=== PATIENT | male | born 1995 | race Caucasian/White ===

== ENCOUNTER → 2016-05-16 | Outpatient (CLI) | payer MEDICAID ==
[2016-05-16 16:06] LABS: BASOPHILS # (AUTO) 0.1 X10^3/uL (0.0-0.1); BASOPHILS % (AUTO) 0.8 % (0.2-1.0); EOSINOPHILS % (AUTO) 0.7 % (0.9-2.9); HEMATOCRIT 47.4 % (42.0-54.0); HEMOGLOBIN 16.5 g/dL (13.5-18.0); LYMPHOCYTES # (AUTO) 1.2 X10^3/uL (1.3-2.9); MEAN CORPUSCULAR HEMOGLOBIN 32.2 pg (27.0-34.0); MEAN CORPUSCULAR HGB CONC 34.9 g/dL (33.0-35.0); MEAN CORPUSCULAR VOLUME 92.3 fL (80.0-100.0); MEAN PLATELET VOLUME 8.5 fL (7.4-11.0); MONOCYTES # (AUTO) 0.7 x10^3/uL (0.3-0.8); MONOCYTES % (AUTO) 11.3 % (0.0-13.0); NEUTROPHILS # (AUTO) 4.2 x10^3/uL (2.2-4.8); NEUTROPHILS % (AUTO) 67.2 % (42.0-75.0); PLATELET COUNT 222 X10^3/uL (150.0-450.0); RED BLOOD COUNT 5.13 X10^6/uL (4.7-6.0); RED CELL DISTRIBUTION WIDTH 12.9 % (11.6-16.5); WHITE BLOOD COUNT 6.2 X10^3/uL (3.6-10.0)
[2016-05-16 16:15] LABS: ALANINE AMINOTRANSFERASE 194 Units/L (12-78); ALBUMIN 4.1 g/dL (3.4-5.0); ALKALINE PHOSPHATASE 68 Units/L (46-116); ASPARTATE AMINO TRANSFERASE 166 Units/L (15-37); BLOOD UREA NITROGEN 4 mg/dL (7-18); CALCIUM 9.2 mg/dL (8.5-10.1); CARBON DIOXIDE 27.9 mmol/L (21-32); CHLORIDE 100 mmol/L (98-107); COR NA(FOR HYPERGLY) 138 mmol/L (136-145); GLUCOSE 111 mg/dL (65-99); SODIUM 138 mmol/L (136-145); TOTAL PROTEIN 8.1 g/dL (6.4-8.2); eGFR BLACK RACES > 60 (>60); eGFR NON BLACK RACES > 60 (>60)
[2016-05-16 16:29] LABS: VALPROIC ACID 88.6 ug/mL (50-100)
== END ==
LOC: LAB 15:25
PROVIDERS: ATTEND Nurse Practitioner Family
DX: Z87.898 Personal history of other specified conditions (principal); I10 Essential (primary) hypertension
CPT/HCPCS: 36415; 80053; 80164; 80177; 85025

== ENCOUNTER → 2016-05-31 | Outpatient (CLI) | payer MEDICAID ==
[~2016-05-31] MED LIST: NS 100 ML IV 100 ML IV ONE
--- NOTE | 2016-05-31 10:49 | US ---
HISTORY: Elevated liver enzymes Study: Right upper quadrant abdominal ultrasound Comparison: None Technique: Multiple images of the right upper quadrant were obtained. Findings: Increased echogenicity throughout the liver suggests fatty infiltration. Correlate clinically as oth er causes of hepatic disease may produce a similar appearance.. The right kidney measures 13.5 x 6.6 x 5.0 cm. No sonographic evidence of hydronephrosis is identified. No shadowing echogenic stones ar e noted within the gallbladder. Gallbladder wall thickness is within normal limits measuring 2.7 mm. The common bile duct is within normal limits in caliber measuring 4.4 mm. The pancreas was incomple tely visualized. IMPRESSION: 1. Sonographic findings of hepatic steatosis. Reported By:
--- NOTE | 2016-05-31 12:12 | CT ---
STUDY: CT HEAD WITHOUT AND WITH CONTRAST HISTORY: History of seizures. TECHNIQUE: Multiple axial images of the head were obtained from the skull base to the vertex withou t administration of IV contrast. Automated exposure control (AEC) was utilized to adjust the MA and /or kV. COMPARISON: None. FINDINGS: Precontrast Head: The sulci, cisterns and ventricles are age appropriate. There is no evidence of ac antony territorial infarction, hemorrhage, mass, mass effect, or midline shift. There are no abnormal i ntra-axial or extra-axial fluid collections. There is no evidence of acute osseous abnormality or si gnificant soft tissue swelling. Visualized paranasal sinuses and mastoid air cells are predominately clear. Postcontrast head: Following the uneventful administration of intravenous contrast, there is no evid ence of abnormal brain parenchymal or leptomeningeal enhancement. IMPRESSION: 1. No evidence of acute intracranial abnormality. Reported By:
== END ==
LOC: RAD 09:40
PROVIDERS: ATTEND Nurse Practitioner Family
DX: R74.8 Abnormal levels of other serum enzymes (principal); Z87.898 Personal history of other specified conditions; K76.89 Other specified diseases of liver
CPT/HCPCS: 70470; 76705; A4222

== ENCOUNTER → 2016-06-20 | Outpatient (CLI) | payer MEDICAID ==
[2016-06-20 11:58] LABS: ALBUMIN 4.4 g/dL (3.4-5.0); BILIRUBIN,DIRECT 0.06 mg/dL (0-0.2); TOTAL PROTEIN 8.5 g/dL (6.4-8.2)
[2016-06-23 20:19] LABS: HEPATITIS A ANTIBODY IGM Negative (Negative)
[2016-06-25 11:05] LABS: HEPATITIS B CORE IGM Negative (Negative); HEPATITIS B SURFACE ANTIGEN Negative (Negative)
[2016-06-25 11:07] LABS: ANTI-NUCLEAR ANTIBODY TEST None Detected (None Detected); COPPER LEVEL 99 ug/dL (70-140)
== END ==
LOC: LAB 10:49
PROVIDERS: ATTEND Internal Medicine Gastroenterology
DX: R94.5 Abnormal results of liver function studies (principal)
CPT/HCPCS: 36415; 80074; 80076; 82103; 82390; 82525; 82728; 83540; 83550; 84466; 86256; 86308

== ENCOUNTER 2016-06-23 06:40 | Emergency (ER) | payer MEDICAID ==
[2016-06-23 06:50] VITALS: BP 158/86; BMI 22.7
--- NOTE | 2016-06-23 07:12 | DR.GENAD ---
HPI - PCP Primary Care Physician: VARUN - Complaint/Symptoms Chief Complaint Doctors Comments: Patient presents with mom with c/o seizure activity. His upper extremities were stiff, duration of seizure less than five minutes. There was no urinary or fecal incontinence. He had febrile as child then started have non febrile. He was home school due to frequency of seizures. He has been seen and evaluated by neurologist and follow by a primary care physician. His work up has been negative todate by history. Patient lives with his dad and sister. His last drug level of levetiracetam was <2mcg/ml (05/16/16). Patient is alert in no acute distress. Chief Complaint:: PT C/O SEIZURE. PT HAS A HISTORY OF SEIZURE. PT'S MEDICATION WAS JUST CHANGED. - Source History Provided: Patient, Parent, EMS - Mode of Arrival Mode of Arrival: EMS - Timing Onset of Chief Complaint: 06/23/16 PMH - PMH Past Medical History: Yes Past Medical History: Diabetes, Seizures Past Surgical History: No - Family History History of Family Medical Conditions: No - Social History Does any household member use tobacco: No Alcohol Use: None Do you use any recreational Drugs:: No Lives With: Family Lives Where: Home - infectious screening In the last 2 months have you had wt loss of >10#?: NO Have you had fever, night sweats or hemotysis?: No Have you traveled outside the country in the last 6 months?: No Isolation: Standard ROS - Review of Systems Constitutional: No Symptoms Reported Eyes: No Symptoms Reported ENTM: No Symptoms Reported Respiratoy: No Symptoms Reported Cardiovascular: No Symptoms Reported Gastrointestinal/Abdominal: No Symptoms Reported Genitourinary: No Symptoms Reported Neurological: No Symptoms Reported Musculoskeletal: No Symptoms Reported Integumentary: No Symptoms Reported Hematologic/Lymphatic: No Symptoms Reported Endocrine: No Symptoms Reported Psychiatric: No Symptoms Reported All Other Systems: Reviewed and Negative PE - Vital Signs Vitals: Temperature 98.3 F Pulse Rate 152 Respiratory Rate 20 Blood Pressure 158/86 O2 Sat by Pulse Oximetry 97 - General Limitations: No Limitations General Appearance: Alert, In No Apparent Distress - Head Head Exam: Normal Inspection, Atraumatic - Eyes Eye exam: Normal Appearance, PERRL, EOMI - ENT ENT Exam: Normal Exam External Ear Exam: Normal External Inspection TM/Canal Exam: Bilateral Normal Nose Exam: Normal Nose Exam Mouth Exam: Normal Inspection Throat Exam: Normal Inspection - Neck Neck Exam: Normal Inspection - Chest Chest Inspection: Normal Inspection - Respiratory Respiratory Exam: Normal Lung Sounds Bilat Respiratory Exam: Bilateral Clear to Auscultation - Cardiovascular Cardiovascular Exam: Regular Rate, Normal Rhythm - Abdominal Exam Abdominal Exam: Normal Inspection, Normal Bowel Sounds Abdominal Tenderness: negative: RUQ, RLQ, LUQ, LLQ, Epigastrium, Suprapubic, Diffuse, Mild, Moderate, Severe, Other - Extremities Extremities Exam: Normal Inspection, Full ROM - Back Back Exam: Normal Inspection, Full ROM - Neurologic Neurological Exam: Alert, Oriented X3, CN II-XII Intact - Psychiatric Psychiatric Exam: Normal Affect - Skin Skin Exam: Warm, Dry - Diagnosis Discharge Problem: uncontrolled seizure disorder, Seizure secondary to subtherapeutic anticonvulsant medication - Discharge Plan Condition: Stable - Follow ups/Referrals Follow ups/Referrals: NFD,None [Primary Care Provider] - 3 days - Instructions
[2016-06-23 07:37] LABS: BASOPHILS # (AUTO) 0.1 X10^3/uL (0.0-0.1); BASOPHILS % (AUTO) 0.9 % (0.2-1.0); EOSINOPHILS # (AUTO) 0.1 x10^3/uL (0.0-0.2); EOSINOPHILS % (AUTO) 1.4 % (0.9-2.9); HEMATOCRIT 46.1 % (42.0-54.0); HEMOGLOBIN 15.8 g/dL (13.5-18.0); LYMPHOCYTES # (AUTO) 1.4 X10^3/uL (1.3-2.9); MEAN CORPUSCULAR HEMOGLOBIN 31.8 pg (27.0-34.0); MEAN CORPUSCULAR HGB CONC 34.3 g/dL (33.0-35.0); MEAN CORPUSCULAR VOLUME 92.5 fL (80.0-100.0); MEAN PLATELET VOLUME 8.5 fL (7.4-11.0); MONOCYTES # (AUTO) 0.9 x10^3/uL (0.3-0.8); MONOCYTES % (AUTO) 9.5 % (0.0-13.0); NEUTROPHILS # (AUTO) 7.4 x10^3/uL (2.2-4.8); NEUTROPHILS % (AUTO) 74.2 % (42.0-75.0); PLATELET COUNT 249 X10^3/uL (150.0-450.0); RED BLOOD COUNT 4.98 X10^6/uL (4.7-6.0); RED CELL DISTRIBUTION WIDTH 12.6 % (11.6-16.5)
[2016-06-23 07:51] LABS: ALANINE AMINOTRANSFERASE 196 Units/L (12-78); ALKALINE PHOSPHATASE 71 Units/L (46-116); ASPARTATE AMINO TRANSFERASE 139 Units/L (15-37); BLOOD UREA NITROGEN 9 mg/dL (7-18); CALCIUM 9.1 mg/dL (8.5-10.1); CHLORIDE 100 mmol/L (98-107); CREATININE 0.81 mg/dL (0.70-1.30); GLUCOSE 107 mg/dL (65-99); SODIUM 136 mmol/L (136-145); TOTAL PROTEIN 7.8 g/dL (6.4-8.2); eGFR BLACK RACES > 60 (>60); eGFR NON BLACK RACES > 60 (>60)
== END 2016-06-23 08:31 | disposition home or self-care (01) ==
LOC: ER 06:44
DX: G40.909 Epilepsy, unspecified, not intractable, without status epilepticus (principal)
CPT/HCPCS: 36415; 80053; 85025; 96365; 99282; 99283

== ENCOUNTER → 2016-06-28 | Outpatient (CLI) | payer MEDICAID ==
[2016-06-23 06:50] VITALS: BP 158/86
== END ==
LOC: RT 15:12
PROVIDERS: ATTEND Nurse Practitioner Family
DX: G40.909 Epilepsy, unspecified, not intractable, without status epilepticus (principal)
CPT/HCPCS: 95819

== ENCOUNTER → 2016-07-06 | Outpatient (CLI) | payer MEDICAID ==
[2016-06-23 06:50] VITALS: BP 158/86
--- NOTE | 2016-07-06 15:42 | MRI ---
STUDY: MRI OF THE BRAIN WITHOUT AND WITH GADOLINIUM History: Seizure disorder. Frequent seizures. Comparison: Head CT from May 31, 2016. Technique: Multiplanar multi-sequence MRI of the brain was obtained utilizing standard departmental protocol. Sagittal and axial T1, axial T2, FLAIR, diffusion (DWI/ADC) images through the brain were performed. 14 cc of Omniscan was administered without reported complication following acquisition of informed w ritten consent. Post gadolinium axial and coronal whole brain images were performed. Findings: Pre gadolinium brain: The sulci, cisterns, and ventricles are age appropriate. There is no evidence of acute territorial infarction, hemorrhage, mass, mass effect or midline shift. There are no abnorm al intra-axial or extra-axial fluid collections. The major intracranial vascular flow voids are inta ct. Coronal T2 weighted images through the the temporal lobes show asymmetric atrophy of the left hippoc ampal head, with associated T2 prolongation. There is no evidence of mackay matter heterotopia or valeri ical dysplasia. Post gadolinium brain: Following the uneventful administration of intravenous gadolinium, there is n o evidence of abnormal brain parenchymal or leptomeningeal enhancement. IMPRESSION: 1. Asymmetric left hippocampal head atrophy and hyperintensity. 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 Clinical correlation, and correlation with EEG is recommended. Reported By:
== END ==
LOC: RAD 14:02
PROVIDERS: ATTEND Nurse Practitioner Family
DX: G40.909 Epilepsy, unspecified, not intractable, without status epilepticus (principal)
CPT/HCPCS: 70553

== ENCOUNTER 2016-09-19 14:08 | Observation (INO) | payer MEDICAID ==
[2016-09-19 14:12] VITALS: BMI 22.6
--- NOTE | 2016-09-19 14:17 | DR.SEIZA ---
HPI - Time Seen Time seen: 14:15 - Primary Care Physician Primary Care Physician: Eder WHITE - HPI Comment HPI Comment: HISTORY BELOW. - Complaints Chief Complaint Doctors Comments: SEIZURE 2 TIMES THIS AM AND NOTHER ONE BEFORE COMING TO ED. HIS SEIZURE DISORDER ON KEPPRA, 750MG DAILY. GET BREAK THROUGH SEIZURE BUT NOT THIS OFFEN. Chief Complaint:: SEIZURE ACTIVITY. PT. HAS HAD TWO SEIZURES TODAY. PT. BIT THE RIGHT SIDE OF HIS TOUNGE. - Reviewed Nurses Notes Reviewed: Yes - Source History Provided: Patient, Parent, EMS - Mode of Arrival Mode of Arrival: EMS - Timing Onset of Chief Complaint: 09/19/16 - Duration Since Onset: Intermittent Duration: Unknown - Quality Quality: Grand mal - Location Location: Generalized - Context Prior to Seizure:: Normal During Seizure: LOC, Tongue Trauma Immediately After Seizure: Confusion History of:: Seizure Disorder Medication Compliance: Yes - Associated Signs and Symptoms Associated Signs and Symptoms:: None PMH - PMH Past Medical History: Yes Past Medical History: Diabetes, Seizures Past Surgical History: No Surgical History: No History - Family History History of Family Medical Conditions: No - Social History Does patient currently use any type of tobacco product: No Have you used tobacco products in the last 12 months: No Type of Tobacco Use: None Does any household member use tobacco: No Alcohol Use: None Do you use any recreational Drugs:: No Lives With: Dad Lives Where: Home - infectious screening In the last 2 months have you had wt loss of >10#?: NO Have you had fever, night sweats or hemotysis?: No Have you traveled outside the country in the last 6 months?: No Isolation: Standard ROS - Review of Systems Constitutional: No Symptoms Reported Eyes: No Symptoms Reported ENTM: No Symptoms Reported Respiratoy: No Symptoms Reported Cardiovascular: No Symptoms Reported Gastrointestinal/Abdominal: No Symptoms Reported Genitourinary: No Symptoms Reported Neurological: No Symptoms Reported Musculoskeletal: Muscle Pain Integumentary: No Symptoms Reported Hematologic/Lymphatic: No Symptoms Reported Endocrine: No Symptoms Reported All Other Systems: Reviewed and Negative PE - Vital Signs Vitals: Temperature 98.8 F Pulse Rate [Left Brachial] 108 Pulse Rate 132 Respiratory Rate 20 Blood Pressure 141/73 O2 Sat by Pulse Oximetry 99 - General Limitations: No Limitations General Appearance: Alert - Head Head Exam: Normal Inspection - Eyes Eye exam: Normal Appearance Eyelids: Normal Inspection: Bilateral Pupils: Regular, Round: Bilateral, Reactive: Bilateral - ENT ENT Exam: Normal External Ear Exam Mouth Exam: Normal Inspection - Neck Neck Exam: Trachea Midline - Chest Chest Inspection: Symmetric Chest Wall Rise - Respiratory Respiratory Exam: Normal Lung Sounds Bilat Respiratory Exam: Bilateral Clear to Auscultation - Cardiovascular Cardiovascular Exam: Regular Rate, Normal Rhythm, Normal Heart Sounds - Abdominal Exam Abdominal Exam: Normal Bowel Sounds, Soft. negative: Tenderness - Extremities Extremities Exam: Normal Inspection - Back Back Exam: Normal Inspection - Neurologic Neurological Exam: Alert, Oriented X3, CN II-XII Intact, Normal Gait, Reflexes Normal. negative: Motor Sensory Deficit Cranial Nerve Exam: EOM Function (II, III, IV, ): Normal, Facial Sensation (V) : Normal, Facial Palsy (VII): Normal, Gag reflex (XI): Normal, Spinal Accessory Function (XI): Normal, Tongue Deviation: Normal Motor Strength - LUE: 5/5 Motor Strength - RUE: 5/5 Motor Strength - LLE: 5/5 Motor Strength - RLE: 5/5 Upper Motor Neuron Exam: Babinski Sign: Normal DTR: achilles tendon (L): 4+, achilles tendon (R): 4+, brachioradialis (L): 4+, brachioradialis (R): 4+, Patellar (L): 4+, patellar (R): 4+ - Psychiatric Psychiatric Exam: Normal Affect, Normal Mood - Skin Skin Exam: Normal Color MDM - Additional Information Obtained Additional Information Obtained From: Family - Differential Diagnosis Seizure due to:: Hypoclacemia (MEDICATION SUB THERAPEUTIC.), Hypoglycemia, Hyponatremia, Hypoxemia Course - Treatment Treatment: NO SEIZURE IBSERVE IN ED. - Consultation Consultation Comments: DISCUSS PSTIENT WITH DR. HESS. WILL SEE HIM IN AM IN HIS OFFICE. TO INCREASE KEPPRA TO 1000MG BID. - Education/Counseling Education/Counseling: Patient, Family Educated On: Treatment, Diagnosis ROR - Labs Reviewed Laboratory Results Reviewed?: Yes Result Diagrams: 09/20/16 03:20 09/20/16 03:20 Laboratory: WBC 11.7 X10^3/uL (3.6-10.0) H 09/20/16 03:20 RBC 4.63 X10^6/uL (4.7-6.0) L 09/20/16 03:20 Hgb 14.6 g/dL (13.5-18.0) 09/20/16 03:20 Hct 41.7 % (42.0-54.0) L 09/20/16 03:20 MCV 90.1 fL (80.0-100.0) 09/20/16 03:20 MCH 31.5 pg (27.0-34.0) 09/20/16 03:20 MCHC 35.0 g/dL (33.0-35.0) 09/20/16 03:20 RDW 13.2 % (11.6-16.5) 09/20/16 03:20 Plt Count 225 X10^3/uL (150.0-450.0) 09/20/16 03:20 MPV 8.8 fL (7.4-11.0) 09/20/16 03:20 Neut % 78.0 % (42.0-75.0) H 09/20/16 03:20 Lymph % 11.6 % (21.0-51.0) L 09/20/16 03:20 [place] % 9.5 % (0.0-13.0) 09/20/16 03:20 Eos % 0.6 % (0.9-2.9) L 09/20/16 03:20 Baso % 0.3 % (0.2-1.0) 09/20/16 03:20 Neut # 9.2 x10^3/uL (2.2-4.8) H 09/20/16 03:20 Lymph # 1.4 X10^3/uL (1.3-2.9) 09/20/16 03:20 [place] # 1.1 x10^3/uL (0.3-0.8) H 09/20/16 03:20 Eos # 0.1 x10^3/uL (0.0-0.2) 09/20/16 03:20 Baso # 0.0 X10^3/uL (0.0-0.1) 09/20/16 03:20 Absolute Nucleated RBC 0.0 /100WBC 09/20/16 03:20 Sodium 139 mmol/L (136-145) 09/20/16 03:20 Corrected Sodium TNP 09/20/16 03:20 Potassium 3.3 mmol/L (3.5-5.1) L 09/20/16 03:20 Chloride 101 mmol/L (98-107) 09/20/16 03:20 Carbon Dioxide 28.6 mmol/L (21-32) 09/20/16 03:20 BUN 6 mg/dL (7-18) L 09/20/16 03:20 Creatinine 0.73 mg/dL (0.70-1.30) 09/20/16 03:20 Est GFR (MDRD) Af Amer > 60 (>60) 09/20/16 03:20 Est GFR (MDRD) Non-Af > 60 (>60) 09/20/16 03:20 Glucose 83 mg/dL (65-99) 09/20/16 03:20 Calcium 8.6 mg/dL (8.5-10.1) 09/20/16 03:20 Corrected Calcium TNP 09/20/16 03:20 Magnesium 2.1 mg/dL (1.7-2.9) 09/19/16 14:25 Total Bilirubin 0.60 mg/dL (0.2-1.0) 09/20/16 03:20 AST 38 Units/L (15-37) H 09/20/16 03:20 ALT 43 Units/L (12-78) 09/20/16 03:20 Alkaline Phosphatase 48 Units/L (46-116) 09/20/16 03:20 Total Protein 7.3 g/dL (6.4-8.2) 09/20/16 03:20 Albumin 3.8 g/dL (3.4-5.0) 09/20/16 03:20 Globulin 3.5 g/dL (2.5-4.5) 09/20/16 03:20 Albumin/Globulin Ratio 1.1 Ratio (1.1-2.1) 09/20/16 03:20 - XRAY XRAY Interpreted by: Radiologist XRAY Findings: report discuss with patient - Diagnosis Discharge Problem: Seizure disorder - Discharge Plan Disposition: ADMITTED INPATIENT Condition: Stable - Follow ups/Referrals - Instructions
[2016-09-19 14:32] LABS: BASOPHILS # (AUTO) 0.1 X10^3/uL (0.0-0.1); BASOPHILS % (AUTO) 0.5 % (0.2-1.0); EOSINOPHILS % (AUTO) 0.1 % (0.9-2.9); HEMATOCRIT 39.3 % (42.0-54.0); HEMOGLOBIN 13.8 g/dL (13.5-18.0); LYMPHOCYTES # (AUTO) 1.2 X10^3/uL (1.3-2.9); LYMPHOCYTES % (AUTO) 8.1 % (21.0-51.0); MEAN CORPUSCULAR HEMOGLOBIN 31.7 pg (27.0-34.0); MEAN CORPUSCULAR HGB CONC 35.1 g/dL (33.0-35.0); MEAN CORPUSCULAR VOLUME 90.3 fL (80.0-100.0); MEAN PLATELET VOLUME 8.1 fL (7.4-11.0); MONOCYTES # (AUTO) 1.2 x10^3/uL (0.3-0.8); MONOCYTES % (AUTO) 8.5 % (0.0-13.0); NEUTROPHILS # (AUTO) 12.1 x10^3/uL (2.2-4.8); NEUTROPHILS % (AUTO) 82.8 % (42.0-75.0); PLATELET COUNT 217 X10^3/uL (150.0-450.0); RED BLOOD COUNT 4.35 X10^6/uL (4.7-6.0); RED CELL DISTRIBUTION WIDTH 12.9 % (11.6-16.5); WHITE BLOOD COUNT 14.6 X10^3/uL (3.6-10.0)
[2016-09-19 14:45] LABS: ALANINE AMINOTRANSFERASE 48 Units/L (12-78); ALBUMIN 3.9 g/dL (3.4-5.0); ALKALINE PHOSPHATASE 53 Units/L (46-116); ASPARTATE AMINO TRANSFERASE 38 Units/L (15-37); BLOOD UREA NITROGEN 9 mg/dL (7-18); CALCIUM 8.5 mg/dL (8.5-10.1); CARBON DIOXIDE 23.6 mmol/L (21-32); CHLORIDE 97 mmol/L (98-107); COR NA(FOR HYPERGLY) 133 mmol/L (136-145); CREATININE 1.08 mg/dL (0.70-1.30); GLUCOSE 119 mg/dL (65-99); MAGNESIUM 2.1 mg/dL (1.7-2.9); SODIUM 133 mmol/L (136-145); TOTAL PROTEIN 7.1 g/dL (6.4-8.2); eGFR BLACK RACES > 60 (>60); eGFR NON BLACK RACES > 60 (>60)
[2016-09-19] MEDS ORDERED: NORFLEX INJ IM ONE (14:52)
[2016-09-19] MEDS ORDERED: KEPPRA TAB 500 MG PO ONE (17:58)
[2016-09-19] MEDS: KEPPRA TAB 500 MG PO SCH (22:18)
[2016-09-19] MEDS: ZANTAC PO SCH (22:21)
[2016-09-20 05:20] LABS: BASOPHILS % (AUTO) 0.3 % (0.2-1.0); EOSINOPHILS # (AUTO) 0.1 x10^3/uL (0.0-0.2); EOSINOPHILS % (AUTO) 0.6 % (0.9-2.9); HEMATOCRIT 41.7 % (42.0-54.0); HEMOGLOBIN 14.6 g/dL (13.5-18.0); LYMPHOCYTES # (AUTO) 1.4 X10^3/uL (1.3-2.9); LYMPHOCYTES % (AUTO) 11.6 % (21.0-51.0); MEAN CORPUSCULAR HEMOGLOBIN 31.5 pg (27.0-34.0); MEAN CORPUSCULAR VOLUME 90.1 fL (80.0-100.0); MEAN PLATELET VOLUME 8.8 fL (7.4-11.0); MONOCYTES # (AUTO) 1.1 x10^3/uL (0.3-0.8); MONOCYTES % (AUTO) 9.5 % (0.0-13.0); NEUTROPHILS # (AUTO) 9.2 x10^3/uL (2.2-4.8); PLATELET COUNT 225 X10^3/uL (150.0-450.0); RED BLOOD COUNT 4.63 X10^6/uL (4.7-6.0); RED CELL DISTRIBUTION WIDTH 13.2 % (11.6-16.5); WHITE BLOOD COUNT 11.7 X10^3/uL (3.6-10.0)
[2016-09-20 05:27] LABS: ALANINE AMINOTRANSFERASE 43 Units/L (12-78); ALBUMIN 3.8 g/dL (3.4-5.0); ALKALINE PHOSPHATASE 48 Units/L (46-116); ASPARTATE AMINO TRANSFERASE 38 Units/L (15-37); BLOOD UREA NITROGEN 6 mg/dL (7-18); CALCIUM 8.6 mg/dL (8.5-10.1); CARBON DIOXIDE 28.6 mmol/L (21-32); CHLORIDE 101 mmol/L (98-107); CREATININE 0.73 mg/dL (0.70-1.30); GLUCOSE 83 mg/dL (65-99); SODIUM 139 mmol/L (136-145); TOTAL PROTEIN 7.3 g/dL (6.4-8.2); eGFR BLACK RACES > 60 (>60); eGFR NON BLACK RACES > 60 (>60)
[2016-09-20] MEDS ORDERED: ZESTRIL TAB 20 MG ONE (07:45)
[2016-09-20] MEDS: ZANTAC PO SCH (08:06)
[2016-09-20] MEDS: KEPPRA TAB 500 MG PO SCH (08:07)
[2016-09-20] MEDS ORDERED: ZESTRIL TAB 20 MG PO SCH (09:00)
[2016-09-20] MEDS ORDERED: LISDEXAMFETAMINE DIMESYLATE 40 MG PO SCH (09:00)
[2016-09-20] MEDS ORDERED: PATIENT'S HOME MEDICATION (Lisinopril [Lisinopril] 20 MG) PO SCH (09:00)
--- NOTE | 2016-09-20 11:26 | DR.H&P ---
H&P - History & Physical for Day of: H&P Date: 09/19/16 - Allergies Allergies/Adverse Reactions: Allergies Allergy/AdvReac Type Severity Reaction Status Date / Time No Known Drug Allergies Allergy Verified 09/19/16 14:09 - Past Medical History Past Medical History: Diabetes, GERD, Seizures - Past Surgical History Surgical History: No History - Family History Family Medical History: Hypertension - Social History Does patient currently use any type of tobacco product: Yes Have you used tobacco products in the last 12 months: Yes Type of Tobacco Use: Cigarettes Packs per day or dips/chews per day: 1/2 Does any household member use tobacco: No Alcohol Use: None Drug Use: None - Medications Home Medications: Ranitidine HCl [ZANTAC TAB 150 MG *] 1 tab PO DAILY 09/19/16 [History Confirmed 09/19/16] - Review of Systems Constitutional: See HPI, Weakness. denies: No Symptoms Reported, Fever, Chills , Sweats, Malaise, Other Eyes: No Symptoms Reported. denies: See HPI, Pain, Vision Change, Conjunctivae Inflammation, Eyelid Inflammation, Redness, Other ENT: No Symptoms Reported. denies: See HPI, Ear Pain, Ear Discharge, Nose Pain , Nose Discharge, Nose Congestion, Mouth Pain, Mouth Swelling, Throat Pain, Throat Swelling, Other Respiratory: No Symptoms Reported. denies: See HPI, Cough, Dry, Shortness of Breath, Hemoptysis, SOB with Excertion, Pleuritic Pain, Sputum, Wheezing, Other Cardiovascular: No Symptoms Reported. denies: Chest Pain, See HPI, Palpitations , Orthopnea, Paroxysmal Noc. Dyspnea, Edema, Light Headedness, Other Gastrointestinal: No Symptoms Reported, See HPI. denies: Nausea, Vomiting, Abdominal Pain, Diarrhea, Constipation, Melena, Hematochezia, Other Genitourinary: No Symptoms Reported. denies: See HPI, Dysuria, Frequency, Incontinence, Hematuria, Retention, Other Musculoskeletal: No Symptoms Reported. denies: See HPI, Shoulder Pain, Arm Pain , Back Pain, Hand Pain, Leg Pain, Foot Pain, Neck Pain, Other Skin: No Symptoms Reported. denies: See HPI, Rash, Lesions, Jaundice, Bruising , Wound, Ecchymosis, Other Neurological: See HPI, Weakness, Confusion, Seizures - Physical Exam Vital Signs: Temperature 98.2 F Pulse Rate [Left Brachial] 98 Respiratory Rate 20 Blood Pressure [Right Arm] 137/85 O2 Sat by Pulse Oximetry 98 Oriented: Person. negative: Normal, Time, Place, Not Oriented, Unable to test, Other Eyes: Normal Ear: Normal Nose: Normal. negative: Injected, Discharge, Blood, Other Throat: Normal. negative: Tonsillar Hypertrophy, Red, Exudate, Dry, Other Respiratory: Clear Throughout. negative: Diminished Throughout, Rhonchi Throughout, Rales Throughout, Wheezes Throughout, RUL Clear, RML Clear, RLL Clear, CHRIS Clear, LML Clear, LLL Clear, RUL Diminished, RML Diminished, RLL Diminished, CHRIS Diminished, LML Diminished, LLL Diminished, RUL Absent, RML Absent, RLL Absent, CHRIS Absent, LML Absent, LLL Absent, RUL Rhonchi, RML Rhonchi , RLL Rhonchi, CHRIS Rhonchi, LML Rhonchi, LLL Rhonchi, RUL Insp. Wheeze, RML Insp. Wheeze, RLL Insp. Wheeze, CHRIS Insp.Wheeze, LML Insp.Wheeze, LLL Insp.Wheeze, RUL Exp. Wheeze, RML Exp. Wheeze, RLL Exp. Wheeze, CHRIS Exp. Wheeze , LML Exp. Wheeze, LLL Exp. Wheeze, RUL Rales, RML Rales, RLL Rales, CHRIS Rales, LML Rales, LLL Rales, RUL Rub, RML Rub, RLL Rub, CHRIS Rub, LML Rub, LLL Rub, RUL Squeak, RML Squeak, RLL Squeak, CHRIS Squeak, LML Squeak, LLL Squeak Cardiovascular: Tachycardia. negative: Normal, Bradycardia, Irregular, S3, S4, Systolic, Diastolic, Murmur, Edema, Other : Normal. negative: Dysuria, Hematuria, Frequency, Discharge, Testicular Pain , Bleeding, , Other Auscultation: Bowel Sounds: Normal. negative: Bruit, Absent, Increased, Decreased, High Pitched, Other Palpation: Normal. negative: Spleen Enlarged, Liver Enlarged, Mass Pulsatile, Other Tenderness: Normal. negative: Diffuse, RUQ, RLQ, LUQ, LLQ, Epigastric, Periumbilical, Suprapubic, Mild, Moderate, Severe, Rebound, Guarding, Rigidity, Other Skin: Normal. negative: Decreased Turgur, Rash, Papular, Macular, Maculopapular , Vesicular, Pustular, Petechial, Red, Tender, Hot, Diaphoresis, Wound, Bruising , Ecchymosis, Other Musculoskeletal: Normal. negative: Right, Left, Shoulder, Clavicle, Arm, Elbow , Forearm, Wrist, Hand, Hip, Thigh, Knee, Leg, Ankle, Foot, Back:Thoracic, Back: Lumbar, Back:Midline, Back:Paraspinous, Pelvis, Swelling, Tender, Deformity, Pulse Deficit, Motor Deficit, Sensory Deficit, Instability, Crepitance Psychiatric: Normal Mood Description: Calm Affect: Normal Speech Pattern: Clear - Assessment/Plan (1) Seizure disorder Status: Acute Plan: INCREASE KEPPRA TO 1,000MG BID, CONTINUE TO MONITOR
[2016-09-20 17:48] VITALS: BP 120/72
--- NOTE | 2016-09-20 20:23 | DR.CONSULT ---
Consult - Consultation for Day of: Date: 09/20/16 - Chief Complaint Chief Complaint: Increased frequency of seizures. - Allergies Allergies/Adverse Reactions: Allergies Allergy/AdvReac Type Severity Reaction Status Date / Time No Known Drug Allergies Allergy Verified 09/19/16 14:09 - History of Present Illness History of Present Illness: 21-year-old female patient was seen and examined because of history of seizure disorder since age 3-4 months. He was admitted yesterday because of increased frequency of seizures. These were witnessed seizures. Patient's the seizures start with the staring spell and at times they progress to generalized convulsive seizures. These are associated with tongue biting and incontinence of bladder. Post ictally patient is confused tired and somnolent. He had several seizures on the day of admission. Patient is well known to our services. He is on Keppra which was recently increased to thousand milligrams twice a day. Patient also has history of mental retardation. Other than this patient has no complaints. At the time of neurological evaluation patient is awake alert and responding reasonably well to verbal communications. - Past Medical History Past Medical History: Diabetes, GERD, Seizures - Past Surgical History Surgical History: No History - Family History Family Medical History: Hypertension - Social History Does patient currently use any type of tobacco product: Yes Have you used tobacco products in the last 12 months: Yes Type of Tobacco Use: Cigarettes Packs per day or dips/chews per day: 1/2 Does any household member use tobacco: No Alcohol Use: None Drug Use: None - Medications Home Medications: Ranitidine HCl [ZANTAC TAB 150 MG *] 1 tab PO DAILY 09/19/16 [History Confirmed 09/19/16] Divalproex Sodium [DEPAKOTE DR TAB 500 MG Generic *] 1 tab PO BID 09/20/16 [ History Confirmed 09/20/16] - Review of Systems Constitutional: No Symptoms Reported Eyes: No Symptoms Reported ENT: No Symptoms Reported Respiratory: No Symptoms Reported Cardiovascular: No Symptoms Reported Gastrointestinal: No Symptoms Reported Genitourinary: No Symptoms Reported Musculoskeletal: No Symptoms Reported Skin: No Symptoms Reported Neurological: See HPI - Physical Exam Vital Signs: Temperature 98.1 F Pulse Rate [Left Brachial] 92 Respiratory Rate 19 Blood Pressure [Right Arm] 120/72 O2 Sat by Pulse Oximetry 99 Oriented: Normal Eyes: Normal Ear: Normal Nose: Normal Throat: Normal Respiratory: Clear Throughout Cardiovascular: Normal : Normal Auscultation: Bowel Sounds: Normal Tenderness: Normal Skin: Normal Musculoskeletal: Normal Psychiatric: Normal, Other (neurological examination; cognitive status; patient is reasonably oriented in time place and person. From cognitive point of view patient is in his baseline.speech is fluent, naming is intact, comprehension is intact.; Cranial nerve examination; second cranial nerve; visual gamboa are intact on confrontation. Cranial nerve third fourth and sixth; extraocular movements are full without any nystagmus. Pupils are 3.5 mm in size around equal and reactive to light. Fifth cranial nerve; facial sensations are intact bilaterally. Seventh cranial nerve; facial symmetry is intact bilaterally. Eighth cranial nerve; hearing is intact bilaterally. Ninth and 10th cranial nerve; palate is symmetrical bilaterally. 11th cranial nerve;shoulder shrug is equal and symmetrical bilaterally. 12th cranial nerve; tongue is in midline. Coordination; finger to nose rapid alternating movements are intact.Gait; Romberg is negative, patient is able to do tandem walking. Motor system examination;tone is normal strength 5 over 5. DTRs are +2 equal and symmetrical. Plantars are downgoing bilaterally. Sensory system examination; patient has no deficits .) Mood Description: Calm Affect: Normal Speech Pattern: Clear - Plan Plan: Patient was seen and examined because of increased frequency of seizures. No precipitating factors were identified. Patient is not going through any illness, flulike illness fever, stressful situation. There is no history of sleep deficit. Patient had normal electrolytes. Initially he was on 500 mg of Keppra twice a day. I suggested last night to increase his Keppra to 1000 mg twice a day. I also discussed the possibility of vagus nerve stimulator placement. Patient may be discharged. He will be followed up in our clinic one week from now.
--- NOTE | 2016-09-21 17:21 | DR.CARTERD ---
- Discharge Summary for: Discharge Summary for Date of:: 09/20/16 - Admission Date Date of Admission: 09/19/16 - Admission Diagnoses Admission Diagnosis: SEIZURE DISORDER - Discharge Date Discharge Date: 09/20/16 - Discharge Diagnoses Discharge Diagnosis: SEIZURE DISORDER - Hospital Course Hospital Course: IS A 21 YEAR OLD PATIENT OF CATHERINE WHITE AND . HE PRESENTED TO THE ER WITH COMPLAINTS OF HAVING THREE SEIZURES PRIOR TO COMING TO THE ER. ON ARRIVAL TO ER, PATIENT IS POST ICTAL. HE IS CONFUSED AND FATIGUED. HE COMPLAINS OF PAIN TO TONGUE. TRAUMA NOTED TO RIGHT SIDE OF TONGUE. PATIENTS FAMILY STATED THAT IT MUST HAVE HAPPENED DURING SEIZURE BECAUSE IT WASNT LIKE THAT PRIOR TO SEIZING. VITAL ON ARRIVAL TO ER WERE 98.8-132-20-99%-141/73. CBC WNL EXCEPT WBC 14.6, RBC 4.35, HCT 39.3. CMP WNL EXCEPT SODIUM 133, CHLORIDE 197 , GLUCOSE 119, AST 38. ER DOCTOR CONSULTED WITH . GAVE INSTRUCTIONS TO DISCHARGE PATIENT HOME ON KEPPRA 1,000MG BID. PATIENT WAS DISCHARGED HOME, BUT RETURNED TO ER WHEN HE BEGAN SEIZING AGAIN. WE ADMITTED PATIENT FOR FURTHER TREATMENT AND EVALUATION. WE STARTED HIM ON KEPPRA 1,000MG PO BID, ZESTRIL 20MG DAILY, AND ZANTAC 150 MG BID. ON THE DAY OF DISCHARGE, PATIENT WAS ALERT AND ORIENTED ON ROUNDS. PATIENTS MOTHER IS AT BEDSIDE. HE HAS NO COMPLAINTS UPON ROUNDS AND DENIED SEIZURE ACTIVITY THROUGHOUT THE NIGHT. VITALS ON ROUNDS WERE 98.2-98-20-98%-137/55. CBC WNL EXCEPT WBC 11.7, RBC 4.63, HCT 41.7. CMP WNL EXCEPT POTASSIUM 3.3, BUN 6, AST 38. WE PLANNED FOR DISCHARGE. INSTRUCTIONS FOR MEDICATIONS AND FOLLOW-UP WERE GIVEN TO PATIENT AND FAMILY. THEY BOTH VERBALIZED UNDERSTANDING. PATIENT WAS SENT HOME WITH PRESCRIPTION FOR KEPPRA 1,000 MG BID. HE WAS DISCHARGED HOME IN STABLE CONDITION WITH INSTRUCTIONS TO FOLLOW UP WITH MISAEL MENCHACA AND DR. DENTON IN THEIR OFFICE NEXT MONDAY. - Discharge Medications Discharge Medications: Ranitidine HCl [ZANTAC TAB 150 MG *] 1 tab PO DAILY 09/19/16 [History] Divalproex Sodium [DEPAKOTE DR TAB 500 MG Generic *] 1 tab PO BID 09/20/16 [ History] Levetiracetam [KEPPRA 500 MG *] 2 tabs PO BID #60 tab 09/20/16 [Rx]
== END 2016-09-20 19:10 | disposition home or self-care (01) ==
LOC: ER 14:15 → MED/SURG 19:18
PROVIDERS: ADMIT Internal Medicine; ATTEND Internal Medicine
DX: G40.802 Other epilepsy, not intractable, without status epilepticus (principal); F78 Other intellectual disabilities; Z79.899 Other long term (current) drug therapy; D72.828 Other elevated white blood cell count; E87.1 Hypo-osmolality and hyponatremia; R74.8 Abnormal levels of other serum enzymes
CPT/HCPCS: 36415; 80053; 83036; 83735; 85025; 96365; 99282; 99284; G0378

== ENCOUNTER 2017-01-23 03:09 | Emergency (ER) | payer MEDICAID ==
[2017-01-23] MEDS ORDERED: NS 1000 ML 1,000 ML ONE ×2 (03:18→03:51)
[2017-01-23 03:19] VITALS: BMI 25.8
[2017-01-23] MEDS ORDERED: NS 1000 ML 1,000 ML IV ONE ×2 (03:20→04:00)
--- NOTE | 2017-01-23 03:27 | DR.GENAD ---
HPI - PCP Primary Care Physician: [id number] - HPI Comment HPI Comment: PATIENT HAVE SEIZURE DISORDER AND IS ON DEPAKOTE. PATIENT IS COMPLIANT WITH MEDICATIONS. NO FEVER OR TRAUMA. SEE NEUROLOGIST DR DENTON. HEART RATE IS RAPID. TAKES ADHD MEDS. - Complaint/Symptoms Chief Complaint Doctors Comments: SEIZURE 3 TIMES TONIGHT. Chief Complaint:: ems called out to seizure activity pt to ed calling out that he wants his mama. - Nurses notes reviewed Nurses Notes Review: Yes - Source History Provided: Patient, EMS - Mode of Arrival Mode of Arrival: EMS - Timing Onset of Chief Complaint: 01/23/17 Came on: Suddenly - Duration Duration: Constant Duration: Hours - Severity Severity: Moderate PMH - PMH Past Medical History: Yes Past Medical History: GERD, Seizures Past Surgical History: No Surgical History: No History - Family History History of Family Medical Conditions: Yes Family Medical History: Hypertension - Social History Does patient currently use any type of tobacco product: No Have you used tobacco products in the last 12 months: No Type of Tobacco Use: None Does any household member use tobacco: No Alcohol Use: None Do you use any recreational Drugs:: No Lives With: Family Lives Where: Home - infectious screening In the last 2 months have you had wt loss of >10#?: NO Have you had fever, night sweats or hemotysis?: No Have you traveled outside the country in the last 6 months?: No Isolation: Standard ROS - Review of Systems Constitutional: Weakness, Fatigue Eyes: No Symptoms Reported ENTM: No Symptoms Reported. negative: Ear Pain, Nose Discharge, Nose Congestion , Throat Pain Respiratoy: No Symptoms Reported. negative: Productive Cough, Short of Breath, Wheezing Cardiovascular: Chest Pain, Palpitations. negative: Edema Gastrointestinal/Abdominal: No Symptoms Reported. negative: Abdominal Pain, Constipation, Diarrhea, Nausea, Vomiting Genitourinary: No Symptoms Reported. negative: Dysuria, Frequency, Hematuria Neurological: Seizure Musculoskeletal: Muscle Pain Integumentary: No Symptoms Reported Hematologic/Lymphatic: No Symptoms Reported Endocrine: No Symptoms Reported All Other Systems: Reviewed and Negative PE - Vital Signs Vitals: Temperature 98.1 F Pulse Rate [Apical] 109 Pulse Rate 146 Respiratory Rate 18 Blood Pressure [Left Arm] 142/65 Blood Pressure [Right Arm] 139/77 Blood Pressure 157/87 O2 Sat by Pulse Oximetry 100 - General Limitations: No Limitations General Appearance: Alert - Head Head Exam: Normal Inspection - Eyes Eye exam: Normal Appearance - ENT ENT Exam: Normal External Ear Exam External Ear Exam: Normal External Inspection TM/Canal Exam: Bilateral Normal Nose Exam: Normal Nose Exam Mouth Exam: Normal Inspection Throat Exam: Normal Inspection - Neck Neck Exam: Trachea Midline - Chest Chest Inspection: Symmetric Chest Wall Rise - Respiratory Respiratory Exam: Normal Lung Sounds Bilat Respiratory Exam: Bilateral Clear to Auscultation - Cardiovascular Cardiovascular Exam: Tachycardia - Abdominal Exam Abdominal Exam: Normal Bowel Sounds, Soft. negative: Tenderness - Extremities Extremities Exam: Normal Inspection - Back Back Exam: Normal Inspection - Neurologic Neurological Exam: Alert, Oriented X3 - Psychiatric Psychiatric Exam: Normal Affect, Normal Mood - Skin Skin Exam: Normal Color MDM - Additional Information Additional Information Obtained From: Family - Differential Diagnosis Differential Diagnosis: SEIZURE, DEHYDRATION, TACHYCADIA Course - Treatment Treatment: SEE ORDERS. NO SEIZURE NOTED IN ED. HEART RATE SPONTANOUSLY DECREASING WITH IV HYDRATION. - Education/Counseling Education/Counseling: Patient, Family Educated On: Treatment ROR - Labs Reviewed Laboratory Results Reviewed?: Yes Result Diagrams: 01/23/17 03:35 01/23/17 03:35 Laboratory: WBC 11.0 X10^3/uL (3.6-10.0) H 01/23/17 03:35 RBC 5.43 X10^6/uL (4.7-6.0) 01/23/17 03:35 Hgb 17.4 g/dL (13.5-18.0) 01/23/17 03:35 Hct 51.1 % (42.0-54.0) 01/23/17 03:35 MCV 94.0 fL (80.0-100.0) 01/23/17 03:35 MCH 32.0 pg (27.0-34.0) 01/23/17 03:35 MCHC 34.0 g/dL (33.0-35.0) 01/23/17 03:35 RDW 12.7 % (11.6-16.5) 01/23/17 03:35 Plt Count 334 X10^3/uL (150.0-450.0) 01/23/17 03:35 MPV 8.6 fL (7.4-11.0) 01/23/17 03:35 Neut % 60.7 % (42.0-75.0) 01/23/17 03:35 Lymph % 28.0 % (21.0-51.0) 01/23/17 03:35 Sullivan % 7.0 % (0.0-13.0) 01/23/17 03:35 Eos % 1.9 % (0.9-2.9) 01/23/17 03:35 Baso % 2.4 % (0.2-1.0) H 01/23/17 03:35 Neut # 6.7 x10^3/uL (2.2-4.8) H 01/23/17 03:35 Lymph # 3.1 X10^3/uL (1.3-2.9) H 01/23/17 03:35 Sullivan # 0.8 x10^3/uL (0.3-0.8) 01/23/17 03:35 Eos # 0.2 x10^3/uL (0.0-0.2) 01/23/17 03:35 Baso # 0.3 X10^3/uL (0.0-0.1) H 01/23/17 03:35 Absolute Nucleated RBC 0.1 /100WBC 01/23/17 03:35 Sodium 137 mmol/L (136-145) 01/23/17 03:35 Corrected Sodium 139 mmol/L (136-145) 01/23/17 03:35 Potassium 4.0 mmol/L (3.5-5.1) 01/23/17 03:35 Chloride 97 mmol/L (98-107) L 01/23/17 03:35 Carbon Dioxide 14.0 mmol/L (21-32) L* 01/23/17 03:35 BUN 11 mg/dL (7-18) 01/23/17 03:35 Creatinine 1.44 mg/dL (0.70-1.30) H 01/23/17 03:35 Est GFR (MDRD) Af Amer > 60 (>60) 01/23/17 03:35 Est GFR (MDRD) Non-Af > 60 (>60) 01/23/17 03:35 Glucose 176 mg/dL (65-99) H 01/23/17 03:35 Calcium 9.2 mg/dL (8.5-10.1) 01/23/17 03:35 Corrected Calcium TNP 01/23/17 03:35 Total Bilirubin 0.30 mg/dL (0.2-1.0) 01/23/17 03:35 AST 54 Units/L (15-37) H 01/23/17 03:35 ALT 76 Units/L (12-78) 01/23/17 03:35 Alkaline Phosphatase 98 Units/L (46-116) 01/23/17 03:35 Total Protein 8.1 g/dL (6.4-8.2) 01/23/17 03:35 Albumin 4.3 g/dL (3.4-5.0) 01/23/17 03:35 Globulin 3.8 g/dL (2.5-4.5) 01/23/17 03:35 Albumin/Globulin Ratio 1.1 Ratio (1.1-2.1) 01/23/17 03:35 Specimen Type Clean catch urine 01/23/17 05:51 Urine Color Yellow (YELLOW) 01/23/17 05:51 Urine Appearance Slightly hazy (CLEAR) 01/23/17 05:51 Urine pH 5.0 (5.0 - 8.0) 01/23/17 05:51 Ur Specific Nemo 1.015 (1.000-1.030) 01/23/17 05:51 Urine Protein 2+ (NEGATIVE) 01/23/17 05:51 Urine Glucose (UA) Negative (NEGATIVE) 01/23/17 05:51 Urine Ketones Negative (NEGATIVE) 01/23/17 05:51 Urine Occult Blood 2+ (NEGATIVE) 01/23/17 05:51 Urine Nitrite Negative (NEGATIVE) 01/23/17 05:51 Urine Bilirubin Negative (NEGATIVE) 01/23/17 05:51 Urine Urobilinogen Normal (NORMAL) 01/23/17 05:51 Ur Leukocyte Esterase Negative (NEGATIVE) 01/23/17 05:51 Urine RBC 4-6 /HPF (NEGATIVE) 01/23/17 05:51 Urine WBC 0-1 /HPF (NEGATIVE) 01/23/17 05:51 Ur Squamous Epith Cells Rare /HPF (NEGATIVE) 01/23/17 05:51 Urine Bacteria Negative /HPF (NEGATIVE) 01/23/17 05:51 Urine Mucus Few /HPF (NEGATIVE) 01/23/17 05:51 Ur Culture Indicated? No/not indicated 01/23/17 05:51 Valproic Acid < 3.0 ug/mL (50-100) L 01/23/17 03:35 - Diagnosis Discharge Problem: Seizure, Dehydration, Tachycardia - Discharge Plan Disposition: 01 HOME, SELF-CARE Condition: Stable - Follow ups/Referrals Follow ups/Referrals: VINCE DENTON [STAFF PHYSICIAN] - 2 days [facility],None [Primary Care Provider] - 3 days - Instructions Instructions: Dehydration, Adult, [id number], Seizure, Adult, [id number] Additional Instructions: RETURN TO ED IF WORSE. CONTINUE WITH MEDS AT HOME.
[2017-01-23 03:42] LABS: BASOPHILS # (AUTO) 0.3 X10^3/uL (0.0-0.1); BASOPHILS % (AUTO) 2.4 % (0.2-1.0); EOSINOPHILS # (AUTO) 0.2 x10^3/uL (0.0-0.2); EOSINOPHILS % (AUTO) 1.9 % (0.9-2.9); HEMATOCRIT 51.1 % (42.0-54.0); HEMOGLOBIN 17.4 g/dL (13.5-18.0); LYMPHOCYTES # (AUTO) 3.1 X10^3/uL (1.3-2.9); MEAN PLATELET VOLUME 8.6 fL (7.4-11.0); MONOCYTES # (AUTO) 0.8 x10^3/uL (0.3-0.8); NEUTROPHILS # (AUTO) 6.7 x10^3/uL (2.2-4.8); NEUTROPHILS % (AUTO) 60.7 % (42.0-75.0); PLATELET COUNT 334 X10^3/uL (150.0-450.0); RED BLOOD COUNT 5.43 X10^6/uL (4.7-6.0); RED CELL DISTRIBUTION WIDTH 12.7 % (11.6-16.5)
[2017-01-23 03:46] LABS: BLOOD UREA NITROGEN 11 mg/dL (7-18); CALCIUM 9.2 mg/dL (8.5-10.1); CHLORIDE 97 mmol/L (98-107); COR NA(FOR HYPERGLY) 139 mmol/L (136-145); CREATININE 1.44 mg/dL (0.70-1.30); SODIUM 137 mmol/L (136-145); eGFR BLACK RACES > 60 (>60); eGFR NON BLACK RACES > 60 (>60)
[2017-01-23 04:08] LABS: ALANINE AMINOTRANSFERASE 76 Units/L (12-78); ALBUMIN 4.3 g/dL (3.4-5.0); ALKALINE PHOSPHATASE 98 Units/L (46-116); ASPARTATE AMINO TRANSFERASE 54 Units/L (15-37); TOTAL PROTEIN 8.1 g/dL (6.4-8.2)
[2017-01-23] MEDS ORDERED: DEPAKOTE D.R. TAB PO ONE ×2 (04:44→04:46)
[2017-01-23 05:15] VITALS: BP 139/77
[2017-01-23 06:06] LABS: BILIRUBIN,URINE NEGATIVE (NEGATIVE); BLOOD/HEMOGLOBIN,URINE 2+ (NEGATIVE); GLUCOSE, URINE NEGATIVE (NEGATIVE); KETONES,URINE NEGATIVE (NEGATIVE); LEUKOCYTE ESTERASE ,URINE NEGATIVE (NEGATIVE); NITRITES,URINE NEGATIVE (NEGATIVE); PROTEIN,URINE 2+ (NEGATIVE); UROBILINOGEN,URINE NORMAL (NORMAL)
[2017-01-23 06:16] LABS: APPEARANCE,URINE SLIGHTLY HAZY (CLEAR); BACTERIA,URINE NEGATIVE /HPF (NEGATIVE); COLOR,URINE YELLOW (YELLOW); SQUAMOUS EPITHELIAL CELL,UR RARE /HPF (NEGATIVE)
[2017-01-23 06:17] LABS: MUCUS,URINE FEW /HPF (NEGATIVE)
== END 2017-01-23 06:16 | disposition home or self-care (01) ==
LOC: ER 03:09
DX: R56.9 Unspecified convulsions (principal); E86.0 Dehydration; R00.0 Tachycardia, unspecified
CPT/HCPCS: 36415; 80053; 80164; 81001; 85025; 93005; 93010; 96365; 96367; 99283; A4222